=== PATIENT | male | born 1935 | race Caucasian/White ===

== ENCOUNTER 2019-01-29 17:52 | Inpatient (IN) ==
[2019-01-29 18:40] LABS: Basophils # 0.1 10*3/uL (0.0-0.2); Basophils % 0.9 % (0.0-0.8); Eosinophils # 0.2 10*3/uL (0.0-0.87); Eosinophils % 2.4 % (0.00-10.9); Hematocrit 39.1 VOL% (42.0-52.0); Hemoglobin 12.4 GM/DL (14.0-18.0); Immature Granulocytes % 0.4 %; Immature Granulocytes Absolute 0.04 #; Lymphocytes # 2.8 10*3/uL (1.4-4.0); Lymphocytes % 27.9 % (21.2-54.2); Mean Corpuscular HGB Conc 31.7 GM/DL (32-36); Mean Corpuscular Volume 82.8 FL (87-102); Mean Platelet Volume 9.2 FL (9.6-12.0); Monocytes % 14.2 % (1.7-12.7); Neutrophils % 54.2 % (38.7-73.9); Platelet Count 278 T/CUMM (130-400); Red Blood Count 4.72 MC/CUMM (3.8-5.5); Red Cell Distribution Width 14.7 % (9.3-17.3)
[2019-01-29 19:00] LABS: Albumin 3.9 G/DL (3.4-5.0); Bilirubin,Total 1.3 MG/DL (0.2-1.0); Calcium 9.6 MG/DL (8.5-10.1); Osmolality,Calculated 276.7 MOS/KG (273-304); Thyroid Stimulating Hormone 1.03 uIU/ml (0.358-3.74); Total Protein 7.8 G/DL (6.4-8.3)
[2019-01-29] MEDS ORDERED: ASPIRIN CHEW 81 MG TABLET PO STA (20:27)
[2019-01-29] MEDS ORDERED: ONDANSETRON 4 MG/2 ML VIAL IV PRN (20:55)
[2019-01-29] MEDS: SODIUM CHLORIDE 0.45% 1,000 ML IV SCH (22:15)
[2019-01-29 22:27] LABS: Apearance,Urine CLEAR (Clear); Bacteria,Urine Occasional /HPF (Few); Bilirubin,Urine Negative (Negative); Blood, Urine Small mg/dL (Negative); Glucose,Urine (UA) Negative (Negative); Ketones,Urine Negative (Negative); Mucus,Urine Occasional /LPF (Occasional); Nitrite,Urine Negative (Negative); Protein,Urine Negative; Urine Color Yellow (Yellow); Urine Specific Gravity 1.019 (1.001-1.035); Urine Urobilinogen < 2.0 EU/DL (0.2-1.0); WBC,Urine 1 /HPF (0-6)
[2019-01-29] MEDS: MORPHINE 4 MG/1 ML VIAL IV PRN (23:21)
[2019-01-30] MEDS: SODIUM CHLORIDE 0.45% 1,000 ML IV SCH ×3 (06:17→21:00)
[2019-01-30] MEDS: PANTOPRAZOLE 40 MG TABLET PO SCH (08:51)
[2019-01-30] MEDS: MORPHINE 4 MG/1 ML VIAL IV PRN (13:43)
[2019-01-30] MEDS: ACETAMINOPHEN 325 MG TABLET PO PRN ×2 (18:13→23:48)
[2019-01-31 08:08] VITALS: BP 173/79
[2019-01-31] MEDS: SODIUM CHLORIDE 0.45% 1,000 ML IV SCH (08:28)
[2019-01-31] MEDS: PANTOPRAZOLE 40 MG TABLET PO SCH (08:29)
== END 2019-01-31 09:55 | disposition home or self-care (01) | DRG 72 ==
LOC: N.ED 17:52 → N.EDINP 20:39 → N.CC 21:50 → N.TELES 01-30 16:58
PROVIDERS: ADMIT Family Medicine; ATTEND Family Medicine

== ENCOUNTER 2019-10-28 13:57 | Inpatient (IN) ==
[2019-10-28] MEDS ORDERED: SODIUM CHLORIDE 0.9% 500 ML IV STA (14:26)
[2019-10-28 14:52] LABS: Basophils # 0.1 10*3/uL (0.0-0.2); Basophils % 1.2 % (0.0-0.8); Eosinophils # 0.2 10*3/uL (0.0-0.87); Eosinophils % 2.2 % (0.00-10.9); Hemoglobin 12.3 GM/DL (14.0-18.0); Immature Granulocytes % 0.3 %; Immature Granulocytes Absolute 0.03 #; Lymphocytes # 2.8 10*3/uL (1.4-4.0); Lymphocytes % 26.6 % (21.2-54.2); Mean Corpuscular HGB Conc 31.5 GM/DL (32-36); Mean Corpuscular Volume 83.9 FL (87-102); Mean Platelet Volume 9.3 FL (9.6-12.0); Monocytes % 9.9 % (1.7-12.7); Neutrophils % 59.8 % (38.7-73.9); Platelet Count 336 T/CUMM (130-400); Red Blood Count 4.65 MC/CUMM (3.8-5.5); Red Cell Distribution Width 14.8 % (9.3-17.3); White Blood Count 10.5 T/CUMM (4-12)
[2019-10-28 15:14] LABS: Albumin 3.9 G/DL (3.4-5.0); Bilirubin,Total 1.6 MG/DL (0.2-1.0); Calcium 9.4 MG/DL (8.5-10.1); Osmolality,Calculated 270.1 MOS/KG (273-304); Total Protein 8.2 G/DL (6.4-8.3)
[2019-10-28] MEDS ORDERED: VANCOMYCIN INJ 1,250 MG in SODIUM CHLORIDE 0.9% 250 ML IV STA (15:50)
[2019-10-28] MEDS ORDERED: LEVOFLOXACIN INJ 500 MG in PREMIX 1 EACH IV STA (15:50)
[2019-10-28 16:34] LABS: Sedimentation Rate-Westergren 60 MM/HR (0-20)
[2019-10-28] MEDS: SODIUM CHLORIDE 0.45% 1,000 ML IV SCH (18:55)
[2019-10-28 19:29] LABS: Apearance,Urine CLEAR (Clear); Bilirubin,Urine Negative (Negative); Blood, Urine Small mg/dL (Negative); Glucose,Urine (UA) Negative (Negative); Hyaline Casts,Urine 3 /LPF (0-3); Ketones,Urine Negative (Negative); Mucus,Urine Occasional /LPF (Occasional); Nitrite,Urine Negative (Negative); Protein,Urine Negative; RBC,Urine <1 /HPF (0-4); Urine Color Yellow (Yellow); Urine Specific Gravity 1.006 (1.001-1.035); Urine Urobilinogen < 2.0 EU/DL (0.2-1.0); WBC,Urine <1 /HPF (0-6)
[2019-10-28] MEDS: ENOXAPARIN 40 MG/0.4 ML SYRINGE SUBCUT SCH (20:39)
[2019-10-28] MEDS: DOCUSATE SODIUM 100 MG CAPSULE PO SCH (20:39)
[2019-10-28] MEDS: LATANOPROST 0.005% OPH SOLN 2.5 ML BOTTLE BOTH EYES SCH (23:56)
[2019-10-29] MEDS: ACETAMINOPHEN 325 MG TABLET PO PRN ×2 (03:33→17:58)
[2019-10-29] MEDS: SODIUM CHLORIDE 0.45% 1,000 ML IV SCH ×3 (03:35→16:22)
[2019-10-29] MEDS: PANTOPRAZOLE 40 MG TABLET PO SCH (08:40)
[2019-10-29] MEDS: SERTRALINE 50 MG TABLET PO SCH (08:40)
[2019-10-29] MEDS: DOCUSATE SODIUM 100 MG CAPSULE PO SCH ×2 (08:40→19:59)
[2019-10-29] MEDS: TIMOLOL 0.5% OPH SOLN 5 ML BOTTLE BOTH EYES SCH (10:37)
[2019-10-29] MEDS: VANCOMYCIN INJ 1,250 MG in SODIUM CHLORIDE 0.9% 250 ML IV SCH (11:28)
[2019-10-29] MEDS: LEVOFLOXACIN INJ 500 MG in PREMIX 1 EACH IV SCH (16:22)
[2019-10-29] MEDS: ONDANSETRON 4 MG/2 ML VIAL IV PRN (16:22)
[2019-10-29] MEDS: ENOXAPARIN 40 MG/0.4 ML SYRINGE SUBCUT SCH (19:59)
[2019-10-29] MEDS: MORPHINE 4 MG/1 ML VIAL IV PRN (19:59)
[2019-10-29] MEDS: LATANOPROST 0.005% OPH SOLN 2.5 ML BOTTLE BOTH EYES SCH (21:25)
[2019-10-30] MEDS: MORPHINE 4 MG/1 ML VIAL IV PRN ×2 (03:44→19:19)
[2019-10-30] MEDS: VANCOMYCIN INJ 1,250 MG in SODIUM CHLORIDE 0.9% 250 ML IV SCH (05:46)
[2019-10-30] MEDS: DOCUSATE SODIUM 100 MG CAPSULE PO SCH ×2 (08:54→20:58)
[2019-10-30] MEDS: ACETAMINOPHEN 325 MG TABLET PO PRN (08:54)
[2019-10-30] MEDS: TIMOLOL 0.5% OPH SOLN 5 ML BOTTLE BOTH EYES SCH (08:55)
[2019-10-30] MEDS: SERTRALINE 50 MG TABLET PO SCH (08:55)
[2019-10-30] MEDS: PANTOPRAZOLE 40 MG TABLET PO SCH (08:55)
[2019-10-30] MEDS: LEVOFLOXACIN INJ 500 MG in PREMIX 1 EACH IV SCH (16:11)
[2019-10-30] MEDS: SODIUM CHLORIDE 0.45% 1,000 ML IV SCH (16:12)
[2019-10-30] MEDS: ONDANSETRON 4 MG/2 ML VIAL IV PRN (18:03)
[2019-10-30] MEDS: ENOXAPARIN 40 MG/0.4 ML SYRINGE SUBCUT SCH (20:58)
[2019-10-30] MEDS: LATANOPROST 0.005% OPH SOLN 2.5 ML BOTTLE BOTH EYES SCH (20:58)
[2019-10-31] MEDS: VANCOMYCIN INJ 1,250 MG in SODIUM CHLORIDE 0.9% 250 ML IV SCH (00:02)
[2019-10-31] MEDS: MORPHINE 4 MG/1 ML VIAL IV PRN (00:06)
[2019-10-31 05:59] LABS: Basophils # 0.1 10*3/uL (0.0-0.2); Basophils % 1.2 % (0.0-0.8); Eosinophils # 0.4 10*3/uL (0.0-0.87); Eosinophils % 3.9 % (0.00-10.9); Hematocrit 35.4 VOL% (42.0-52.0); Hemoglobin 11.1 GM/DL (14.0-18.0); Immature Granulocytes % 0.2 %; Immature Granulocytes Absolute 0.02 #; Lymphocytes # 2.6 10*3/uL (1.4-4.0); Lymphocytes % 28.6 % (21.2-54.2); Mean Corpuscular HGB Conc 31.4 GM/DL (32-36); Mean Corpuscular Volume 84.7 FL (87-102); Mean Platelet Volume 9.5 FL (9.6-12.0); Monocytes % 10.2 % (1.7-12.7); Neutrophils % 55.9 % (38.7-73.9); Platelet Count 269 T/CUMM (130-400); Red Blood Count 4.18 MC/CUMM (3.8-5.5); Red Cell Distribution Width 15.1 % (9.3-17.3); White Blood Count 9.2 T/CUMM (4-12)
[2019-10-31 06:13] LABS: Calcium 8.6 MG/DL (8.5-10.1); Osmolality,Calculated 267.1 MOS/KG (273-304)
[2019-10-31 08:48] VITALS: BP 148/50
[2019-10-31 08:54] LABS: Basophils # 0.1 10*3/uL (0.0-0.2); Basophils % 1.1 % (0.0-0.8); Eosinophils # 0.2 10*3/uL (0.0-0.87); Eosinophils % 2.8 % (0.00-10.9); Hematocrit 37.1 VOL% (42.0-52.0); Hemoglobin 11.8 GM/DL (14.0-18.0); Immature Granulocytes % 0.2 %; Immature Granulocytes Absolute 0.02 #; Lymphocytes # 2.1 10*3/uL (1.4-4.0); Lymphocytes % 24.7 % (21.2-54.2); Mean Corpuscular HGB Conc 31.8 GM/DL (32-36); Mean Corpuscular Volume 84.5 FL (87-102); Mean Platelet Volume 10.9 FL (9.6-12.0); Monocytes % 8.8 % (1.7-12.7); Neutrophils % 62.4 % (38.7-73.9); Red Blood Count 4.39 MC/CUMM (3.8-5.5); Red Cell Distribution Width 15.3 % (9.3-17.3); White Blood Count 8.5 T/CUMM (4-12)
[2019-10-31 08:55] LABS: Platelet Count 215 T/CUMM (130-400)
[2019-10-31 09:19] LABS: Calcium 8.7 MG/DL (8.5-10.1)
[2019-10-31] MEDS: PANTOPRAZOLE 40 MG TABLET PO SCH (09:30)
[2019-10-31] MEDS: DOCUSATE SODIUM 100 MG CAPSULE PO SCH (09:30)
[2019-10-31] MEDS: SERTRALINE 50 MG TABLET PO SCH (09:30)
[2019-10-31] MEDS: TIMOLOL 0.5% OPH SOLN 5 ML BOTTLE BOTH EYES SCH (09:30)
== END 2019-10-31 10:48 | disposition home or self-care (01) | DRG 884 ==
LOC: N.ED 13:57 → N.EDINP 15:53 → N.2E 16:43
PROVIDERS: ADMIT Family Medicine; ATTEND Family Medicine

== ENCOUNTER 2021-11-07 13:34 | Inpatient (IN) ==
[2021-11-07] MEDS ORDERED: ACETAMINOPHEN 325 MG TABLET PO PRN (14:48)
[2021-11-07] MEDS: SODIUM CHLORIDE 0.9% 1,000 ML IV SCH ×2 (15:22→23:08)
[2021-11-07 15:42] LABS: Basophils % 0.2 % (0.0-0.8); Eosinophils % 0.1 % (0.00-10.9); Hematocrit 32.2 VOL% (42.0-52.0); Hemoglobin 10.8 GM/DL (14.0-18.0); Immature Granulocytes % 1.3 %; Immature Granulocytes Absolute 0.19 #; Lymphocytes # 1.1 10*3/uL (1.4-4.0); Lymphocytes % 7.2 % (21.2-54.2); Mean Corpuscular HGB Conc 33.5 GM/DL (32-36); Mean Platelet Volume 9.1 FL (9.6-12.0); Monocytes % 3.7 % (1.7-12.7); Neutrophils % 87.5 % (38.7-73.9); Platelet Count 261 T/CUMM (130-400); Red Blood Count 3.88 MC/CUMM (3.8-5.5); Red Cell Distribution Width 15.9 % (9.3-17.3); White Blood Count 15.1 T/CUMM (4-12)
[2021-11-07 16:01] LABS: Albumin 2.9 G/DL (3.4-5.0); Total Protein 6.8 G/DL (6.4-8.2)
[2021-11-07] MEDS ORDERED: POTASSIUM CHLORIDE 20 MEQ TABLET PO STA (16:31)
[2021-11-07] MEDS ORDERED: INFLUENZA VIRUS VACCINE 0.5 ML SYRINGE IM ONE (18:40)
[2021-11-07] MEDS: DOCUSATE SODIUM 100 MG CAPSULE PO SCH (20:25)
[2021-11-08] MEDS: SODIUM CHLORIDE 0.9% 1,000 ML IV SCH ×2 (06:05→18:24)
[2021-11-08] MEDS: DOCUSATE SODIUM 100 MG CAPSULE PO SCH ×2 (08:00→21:33)
[2021-11-08] MEDS: PANTOPRAZOLE 40 MG TABLET PO SCH (08:00)
[2021-11-08] MEDS ORDERED: ACETAMINOPHEN 325 MG TABLET PO PRN (12:11)
[2021-11-08] MEDS ORDERED: PROMETHAZINE 25 MG TABLET PO PRN (12:11)
[2021-11-08] MEDS: SERTRALINE 100 MG TABLET PO SCH (13:56)
[2021-11-08] MEDS: busPIRone 10 MG TABLET PO SCH ×2 (14:16→21:33)
[2021-11-08] MEDS: LATANOPROST 0.005% OPH SOLN 2.5 ML BOTTLE BOTH EYES SCH (21:33)
[2021-11-08] MEDS: DONEPEZIL 10 MG TABLET PO SCH (21:33)
[2021-11-09] MEDS: SODIUM CHLORIDE 0.9% 1,000 ML IV SCH ×3 (02:51→16:07)
[2021-11-09] MEDS: TIMOLOL 0.5% OPH SOLN 5 ML BOTTLE BOTH EYES SCH (09:44)
[2021-11-09] MEDS: busPIRone 10 MG TABLET PO SCH ×3 (09:44→20:59)
[2021-11-09] MEDS: SERTRALINE 100 MG TABLET PO SCH (09:44)
[2021-11-09] MEDS: DOCUSATE SODIUM 100 MG CAPSULE PO SCH ×2 (09:44→20:59)
[2021-11-09] MEDS: PANTOPRAZOLE 40 MG TABLET PO SCH (09:44)
[2021-11-09] MEDS: POTASSIUM CHLORIDE 20 MEQ TABLET PO PRN ×4 (09:46→17:24)
[2021-11-09] MEDS ORDERED: MAGNESIUM SULF RIDER 2 GM/50 ML PREMIX IV PRN (10:54)
[2021-11-09] MEDS ORDERED: MAGNESIUM SULF RIDER 4 GM/100 ML PREMIX IV PRN (10:54)
[2021-11-09] MEDS ORDERED: POTASSIUM CHLORIDE RIDER 10 MEQ/100 ML PREMIX IV PRN (10:54)
[2021-11-09 11:48] LABS: Basophils # 0.1 10*3/uL (0.0-0.2); Basophils % 0.8 % (0.0-0.8); Eosinophils # 0.3 10*3/uL (0.0-0.87); Eosinophils % 3.1 % (0.00-10.9); Hemoglobin 9.1 GM/DL (14.0-18.0); Immature Granulocytes % 0.6 %; Immature Granulocytes Absolute 0.06 #; Lymphocytes # 1.6 10*3/uL (1.4-4.0); Lymphocytes % 17.3 % (21.2-54.2); Mean Corpuscular HGB Conc 32.5 GM/DL (32-36); Mean Corpuscular Volume 83.8 FL (87-102); Mean Platelet Volume 9.2 FL (9.6-12.0); Monocytes % 5.3 % (1.7-12.7); Neutrophils % 72.9 % (38.7-73.9); Platelet Count 210 T/CUMM (130-400); Red Blood Count 3.34 MC/CUMM (3.8-5.5); White Blood Count 9.3 T/CUMM (4-12)
[2021-11-09 12:16] LABS: Albumin 2.3 G/DL (3.4-5.0); Bilirubin,Total 2.3 MG/DL (0.20-1.00); Calcium 8.5 MG/DL (8.5-10.1); Total Protein 5.9 G/DL (6.4-8.2)
[2021-11-09 12:36] LABS: Eosinophils 3 % (0-10); Hypochromia 1+; Lymphocytes 18 % (20-55); Ovalocytes Few; Platelet Estimate Normal; Polychromasia Slight; Segmented Neutrophils 78 % (50-85); Total Cells Counted 100
[2021-11-09] MEDS ORDERED: hydrALAZINE 20 MG/1 ML VIAL IV PRN (14:17)
[2021-11-09] MEDS: DONEPEZIL 10 MG TABLET PO SCH (20:59)
[2021-11-09] MEDS: LATANOPROST 0.005% OPH SOLN 2.5 ML BOTTLE BOTH EYES SCH (21:03)
[2021-11-10 06:35] LABS: Basophils # 0.1 10*3/uL (0.0-0.2); Basophils % 1.1 % (0.0-0.8); Eosinophils # 0.3 10*3/uL (0.0-0.87); Eosinophils % 4.1 % (0.00-10.9); Hematocrit 27.4 VOL% (42.0-52.0); Immature Granulocytes % 0.9 %; Immature Granulocytes Absolute 0.07 #; Lymphocytes # 1.8 10*3/uL (1.4-4.0); Lymphocytes % 22.1 % (21.2-54.2); Mean Corpuscular HGB Conc 32.8 GM/DL (32-36); Mean Corpuscular Volume 85.4 FL (87-102); Mean Platelet Volume 9.6 FL (9.6-12.0); Monocytes % 5.4 % (1.7-12.7); Neutrophils % 66.4 % (38.7-73.9); Platelet Count 234 T/CUMM (130-400); Red Blood Count 3.21 MC/CUMM (3.8-5.5); Red Cell Distribution Width 16.3 % (9.3-17.3)
[2021-11-10 06:53] LABS: Alanine Aminotransferase < 9 U/L (16-61); Albumin 2.3 G/DL (3.4-5.0); Alkaline Phosphatase 52 U/L (45-117); Aspartate Amino Transferase 17 U/L (0-37); Blood Urea Nitrogen 16 MG/DL (7-18); Calcium 8.6 MG/DL (8.5-10.1); Carbon Dioxide 27 MMOL/L (21-32); Estimated Glom Filtration Rate 95 ML/MIN; Glucose 92 MG/DL (74-106); Osmolality,Calculated 277.5 MOS/KG (273-304); Potassium 3.5 MMOL/L (3.5-5.1); Sodium 139 MMOL/L (136-145); Total Protein 5.7 G/DL (6.4-8.2)
[2021-11-10] MEDS: SODIUM CHLORIDE 0.9% 1,000 ML IV SCH ×2 (07:31→17:22)
[2021-11-10 08:48] LABS: Ovalocytes Few
[2021-11-10 08:49] LABS: Microcytosis 1+; Platelet Estimate Normal; Polychromasia Slight; Target Cells Few
[2021-11-10] MEDS: PANTOPRAZOLE 40 MG TABLET PO SCH (09:27)
[2021-11-10] MEDS: SERTRALINE 100 MG TABLET PO SCH (09:27)
[2021-11-10] MEDS: TIMOLOL 0.5% OPH SOLN 5 ML BOTTLE BOTH EYES SCH (09:27)
[2021-11-10] MEDS: busPIRone 10 MG TABLET PO SCH ×3 (09:27→20:41)
[2021-11-10] MEDS: DOCUSATE SODIUM 100 MG CAPSULE PO SCH ×2 (09:27→20:41)
[2021-11-10] MEDS: DONEPEZIL 10 MG TABLET PO SCH (20:41)
[2021-11-10] MEDS: LATANOPROST 0.005% OPH SOLN 2.5 ML BOTTLE BOTH EYES SCH (20:41)
[2021-11-11] MEDS: SERTRALINE 100 MG TABLET PO SCH (08:55)
[2021-11-11] MEDS: TIMOLOL 0.5% OPH SOLN 5 ML BOTTLE BOTH EYES SCH (08:55)
[2021-11-11] MEDS: busPIRone 10 MG TABLET PO SCH ×3 (08:55→20:18)
[2021-11-11] MEDS: DOCUSATE SODIUM 100 MG CAPSULE PO SCH ×2 (10:02→20:18)
[2021-11-11] MEDS: PANTOPRAZOLE 40 MG TABLET PO SCH (10:03)
[2021-11-11] MEDS ORDERED: ceFAZolin 2,000 MG/50 ML DUPLEX IV ONE (10:30)
[2021-11-11] MEDS ORDERED: TUBERCULIN SKIN TEST 0.1 ML SYRINGE INTRADERM ONE (10:41)
[2021-11-11] MEDS ORDERED: fentaNYL 100 MCG/2 ML VIAL ONE (10:46)
[2021-11-11] MEDS ORDERED: propofoL 200 MG/20 ML VIAL IV ONE (10:46)
[2021-11-11] MEDS ORDERED: LIDOCAINE 2% 5 ML VIAL ONE (10:46)
[2021-11-11] MEDS ORDERED: TISSUE ADHESIVE 1 EACH APPLICATOR TOP ONE (11:21)
[2021-11-11] MEDS ORDERED: ROPIVACAINE 0.5% 30 ML VIAL ONE (11:21)
[2021-11-11] MEDS ORDERED: KETAMINE 500 MG/10 ML VIAL ONE (11:33)
[2021-11-11] MEDS: SODIUM CHLORIDE 0.9% 1,000 ML IV SCH ×2 (13:03→21:55)
[2021-11-11] MEDS: ONDANSETRON 4 MG/2 ML VIAL IV PRN (16:01)
[2021-11-11] MEDS: DONEPEZIL 10 MG TABLET PO SCH (20:18)
[2021-11-11] MEDS: LATANOPROST 0.005% OPH SOLN 2.5 ML BOTTLE BOTH EYES SCH (20:19)
[2021-11-12] MEDS: ONDANSETRON 4 MG/2 ML VIAL IV PRN (08:13)
[2021-11-12] MEDS: PANTOPRAZOLE 40 MG TABLET PO SCH (08:14)
[2021-11-12] MEDS: SODIUM CHLORIDE 0.9% 1,000 ML IV SCH ×2 (08:14→09:51)
[2021-11-12] MEDS: busPIRone 10 MG TABLET PO SCH ×3 (08:14→20:00)
[2021-11-12] MEDS: TIMOLOL 0.5% OPH SOLN 5 ML BOTTLE BOTH EYES SCH (08:14)
[2021-11-12] MEDS: SERTRALINE 100 MG TABLET PO SCH (08:14)
[2021-11-12] MEDS: DOCUSATE SODIUM 100 MG CAPSULE PO SCH ×2 (08:14→20:00)
[2021-11-12] MEDS: DONEPEZIL 10 MG TABLET PO SCH (20:00)
[2021-11-12] MEDS: LATANOPROST 0.005% OPH SOLN 2.5 ML BOTTLE BOTH EYES SCH (20:04)
[2021-11-13 07:57] VITALS: BP 189/66
[2021-11-13] MEDS: TIMOLOL 0.5% OPH SOLN 5 ML BOTTLE BOTH EYES SCH (08:55)
[2021-11-13] MEDS: PANTOPRAZOLE 40 MG TABLET PO SCH (08:55)
[2021-11-13] MEDS: busPIRone 10 MG TABLET PO SCH (08:55)
[2021-11-13] MEDS: SERTRALINE 100 MG TABLET PO SCH (08:55)
[2021-11-13] MEDS: DOCUSATE SODIUM 100 MG CAPSULE PO SCH (08:55)
== END 2021-11-13 09:24 | DRG 479 ==
LOC: N.3E 13:34 → N.ED 13:34 → N.3E 17:36
PROVIDERS: ADMIT Family Medicine; ATTEND Family Medicine